=== PATIENT | male | born 1990 ===

== ENCOUNTER 2017-06-17 12:15 | Emergency (ER) | payer OTHER ==
[2017-06-17 12:24] VITALS: RESP 18; O2SAT 100
--- NOTE | 2017-06-17 13:22 | ED PDOC ---
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 He states he was able to remove the wire in its entirety from his right hand after the incident. He states now he feels pain and tingling sensation to his right 5th digit. The patient states visiting [facility] prior to ED arrival, where he was told to visit the ED prompting his arrival. PMD: None Provided Past Medical History Reviewed: Historical Data, Nursing Documentation, Vital Signs Vital Signs: Last Vital Signs Temp 97.9 F 06/17/17 12:19 Pulse 68 06/17/17 12:19 Resp 18 06/17/17 12:19 BP 162/105 H 06/17/17 12:19 Pulse Ox 100 06/17/17 12:19 - Medical History PMH: No Chronic Diseases - Family History Family History: States: Unknown Family Hx - Home Medications Home Medications: Ambulatory Orders Medication Instructions Recorded Amoxicillin/Clavulanate [Augmentin 1 tab PO BID #14 tab 06/17/17 875 MG-125 MG] Naproxen [Naprosyn] 500 mg PO BID PRN #20 tablet 06/17/17 - Allergies Allergies/Adverse Reactions: Allergies Allergy/AdvReac Type Severity Reaction Status Date / Time No Known Allergies Allergy Verified 06/17/17 12:19 Review of Systems ROS Statement: Except As Marked, All Systems Reviewed And Found Negative Musculoskeletal: Positive for: Hand Pain (puncture wound to right hand with numbness and tingling ) Physical Exam - Reviewed Nursing Documentation Reviewed: Yes Vital Signs Reviewed: Yes - Physical Exam Appears: Positive for: Non-toxic, No Acute Distress Head Exam: Positive for: ATRAUMATIC, NORMOCEPHALIC Skin: Positive for: Normal Color, Warm, Dry Eye Exam: Positive for: Normal appearance Extremity: Positive for: Other (punctured wound on right hand through flexer face of right fist and dorsal aspect of promixal phalynx; surrounding erythema) . Negative for: Normal ROM (able to flex with minimal ability to extend ) Neurologic/Psych: Positive for: Alert, Oriented - ECG O2 Sat by Pulse Oximetry: 100 (RA) Pulse Ox Interpretation: Normal Medical Decision Making Medical Decision Making: Time: 12:27 Impression: Right Hand Injury Plan: * Tylenol 325 mg tab 975 mg PO * [RAD] Hand Right 3 Views * Wound irrigation * Reevaluation Right Hand Xray FINDINGS: BONES: Normal. No fracture. JOINTS: Normal. No osteoarthritic changes. SOFT TISSUES: No significant soft tissue swelling appreciated. No radiopaque foreign body. OTHER FINDINGS: None. IMPRESSION: Normal right hand radiographs. Call placed to Dr. Dela Cruz, hand specialist, and case discussed. He advises patient should be placed on Augmentin, and should follow up with him in his office. Patient and patient's vending supervisor were advised and the importance of medication compliance were stressed. They expressed understanding and agreement. Scribe Attestation: Documented by Zoe Esquivel, acting as a scribe for Cassy Mcgrath PA-C. Provider Scribe Attestation: All medical record entries made by the Scribe were at my direction and personally dictated by me. I have reviewed the chart and agree that the record accurately reflects my personal performance of the history, physical exam, medical decision making, and the department course for this patient. I have also personally directed, reviewed, and agree with the discharge instructions and disposition. Disposition - Clinical Impression Clinical Impression: Puncture wound, Injury of hand - Patient ED Disposition Is Patient to be Admitted: No Discussed With : Holden Dela Cruz Doctor Will See Patient In The: Office Counseled Patient/Family Regarding: Studies Performed, Diagnosis, Need For Followup, Rx Given - Disposition Referrals: Holden Dela Cruz MD [Staff Provider] - Disposition: Routine/Home Disposition Time: 14:24 Condition: FAIR Additional Instructions: KEEP HAND CLEAN AND DRY. TAKE ANTIBIOTICS PRESCRIBED. F/U WITH DR. DELA CRUZ DISCUSSED. Prescriptions: Amoxicillin/Clavulanate [Augmentin 875 MG-125 MG] 1 tab PO BID #14 tab Naproxen [Naprosyn] 500 mg PO BID PRN #20 tablet PRN Reason: Pain, Moderate (4-7) Instructions: Puncture Wound (ED) Forms: [facility] ([place]) Print Language: SERBIAN
--- NOTE | 2017-06-17 13:36 | RAD ---
PROCEDURE: Right Hand Radiographs. HISTORY: right hand puncture wound, 5th digit COMPARISON: None. FINDINGS: BONES: Normal. No fracture. JOINTS: Normal. No osteoarthritic changes. SOFT TISSUES: No significant soft tissue swelling appreciated. No radiopaque foreign body. OTHER FINDINGS: None. IMPRESSION: Normal right hand radiographs.
[2017-06-17] MEDS ORDERED: Amoxicillin-Clav 875-125 mg Tab PO STA (14:16)
[2017-06-17] MEDS ORDERED: Amoxicillin-Clav 875-125 mg Tab PO ONE (14:22)
[2017-06-17 14:31] VITALS: BP 128/92; PULSE 66; TEMP 98
== END 2017-06-17 14:44 | disposition home or self-care (01) ==
LOC: H.ER 12:15
DX: S61.431A Puncture wound without foreign body of right hand, initial encounter (principal); W26.8XXA Contact with other sharp object(s), not elsewhere classified, initial encounter; Y99.0 Civilian activity done for income or pay